=== PATIENT | female | born 1975 | race Caucasian/White ===

== ENCOUNTER → 2021-01-12 | Day surgery (SDC) | payer OTHER ==
[~2021-01-12] MED LIST: CHOL500021 PO; IV RINGERS,LACTATED 1000ML 1,000 ML IV ONE; LACT1CAP29 PO; SULF1TAB24 PO
[2021-01-12 14:23] VITALS: BP 101/63
== END | disposition home or self-care (01) ==
LOC: SURG 12:48
PROVIDERS: ATTEND Internal Medicine Gastroenterology
DX: R13.10 Dysphagia, unspecified (principal); K31.89 Other diseases of stomach and duodenum; K21.9 Gastro-esophageal reflux disease without esophagitis; M19.90 Unspecified osteoarthritis, unspecified site; F41.9 Anxiety disorder, unspecified; Z87.440 Personal history of urinary (tract) infections; Z79.899 Other long term (current) drug therapy; Z98.890 Other specified postprocedural states; Z88.8 Allergy status to other drugs, medicaments and biological substances; Z20.822 Contact with and (suspected) exposure to COVID-19
CPT/HCPCS: 43450; 87426; C9803; U0003